=== PATIENT | male | born 1980 | race Caucasian/White ===

== ENCOUNTER 2021-10-21 08:52 | Emergency (ER) | payer OTHER ==
[~2021-10-21] VITALS: Ht 188 cm; Wt 113.9 kg
[2021-10-21] MEDS ORDERED: METH-1164 PO (09:15)
[2021-10-21 13:00] VITALS: BP 135/89
== END 2021-10-21 13:01 | disposition home or self-care (01) ==
LOC: M ED 08:52
DX: U07.1 COVID-19 (principal); Z20.822 Contact with and (suspected) exposure to COVID-19; Z83.2 Family history of diseases of the blood and blood-forming organs and certain disorders involving the immune mechanism